=== PATIENT | male | born 1935 | race Caucasian/White ===

== ENCOUNTER → 2016-11-22 | Outpatient (CLI) | payer MEDICARE, MEDICAID ==
--- NOTE | 2016-11-22 20:15 | REP ---
PET/CT: History: Abnormal bone scan suspicious for metastatic disease. Comparison: Report of a bone scan from [facility] dated November 01, 2016 describe several foci suspicious for metastatic disease in the cervical, thoracic and lumbar spine, the right 9th rib and the left humeral shaft. TECHNIQUE: 78 minutes following the intravenous injection of a 8.2 mCi dose of F-18 FDG, three-dimensional PET scintigraphy is acquired from the skull base to the proximal thighs. Triplanar noncontrast CT scanning is acquired through the same anatomic range for attenuation correction, and image registration with scan parameters optimized to minimize radiation exposure to the patient. PET scintigraphy and CT datasets were fused and displayed on a workstation with multiplanar and projection display capability. PET/CT Findings: There does not appear to be a pattern of metastatic skeletal disease by PET scintigraphy. No abnormal hypermetabolic bone lesion is seen. There is mild diffuse periarticular FDG accumulation about the shoulders and the left hip and to a lesser extent right hip consistent with arthropathy. No abnormal spinal hypermetabolic uptake is seen. No abnormal hypermetabolic uptake is seen within the chest. Head and neck soft tissues are unremarkable. No abnormal pelvic or abdominal hypermetabolic uptake is seen. There is a bladder diverticulum on the right. Gallstones are noted. There are granulomatous calcifications in the spleen and in the lungs and hilar lymph nodes. No other abnormality. Impression: No PET scintigraphy evidence to suggest skeletal metastatic or other metastatic disease. Arthropathy pattern as noted above. Signed by Bhupinder Penny MD 11/23/2016 09:39 A
== END ==
LOC: M RAD 11:55
PROVIDERS: ATTEND Internal Medicine
DX: R93.7 Abnormal findings on diagnostic imaging of other parts of musculoskeletal system (principal); K80.70 Calculus of gallbladder and bile duct without cholecystitis without obstruction; N32.3 Diverticulum of bladder
CPT/HCPCS: 78815; A9552

== ENCOUNTER 2019-07-18 01:13 | Inpatient (IN) | payer MEDICARE, MEDICAID ==
[2019-07-18] MEDS ORDERED: ACETAMINOPHEN *IV* 1,000 MG in IV 1 EA IV ONE (04:00)
[2019-07-18] MEDS ORDERED: SODIUM CHLORIDE 0.9% 1000ML IV ONE (04:00)
[2019-07-18] MEDS ORDERED: ONDANSETRON 4MG/2ML VIAL (J2405) IV PRN (04:00)
[2019-07-18 04:45] VITALS: BP 168/89
[2019-07-18] MEDS ORDERED: ASPIRIN 81 MG CHEW TABLET PO ONE (05:30)
[2019-07-18 05:41] LABS: HEMATOCRIT 41.3 % (42.0-52.0); HEMOGLOBIN 13.3 g/dl (13.5-17.5); MEAN CORPUSCULAR HEMOGLOBIN 31.2 pg (27.0-33.0); MEAN CORPUSCULAR HGB CONC 32.2 g/dl (32.0-36.5); MEAN CORPUSCULAR VOLUME 96.9 fl (80.0-96.0); PLATELET COUNT, AUTOMATED 149 10^3/uL (150-450); RED BLOOD COUNT 4.26 10^6/uL (4.30-6.10); WHITE BLOOD COUNT 8.2 10^3/uL (4.0-10.0)
[2019-07-18] MEDS ORDERED: ROSU5TAB5 PO (05:52)
[2019-07-18] MEDS ORDERED: DULO30CA9 PO (05:52)
[2019-07-18] MEDS ORDERED: PARO40TA2 PO (05:52)
[2019-07-18] MEDS ORDERED: ATEN50TA2 PO (05:52)
[2019-07-18 05:55] VITALS: BP 157/85
[2019-07-18] MEDS ORDERED: ARTIDRO2 OU (05:56)
[2019-07-18] MEDS ORDERED: CHOL10007 PO (05:56)
[2019-07-18] MEDS ORDERED: XALA0.007 OU (05:56)
[2019-07-18] MEDS ORDERED: VITMTA PO (05:56)
[2019-07-18] MEDS ORDERED: ACET-907 PO (05:56)
[2019-07-18] MEDS ORDERED: ASPI81TA27 PO (05:56)
[2019-07-18] MEDS ORDERED: SYNT50TA PO (05:56)
--- NOTE | 2019-07-18 06:01 | HPEPDOC ---
[facility] Medical History & Physical Date of Admission Jul 18, 2019 Date of Service: Jul 18, 2019 Primary Care Physician: Victoriano Kirkpatrick Attending Physician: COREY DUNCAN MD History and Physical TIME OF SERVICE: 5:20 AM CHIEF COMPLAINT: Abdominal pain HISTORY OF PRESENT ILLNESS: This is an 83-year-old male who initially presented to [facility] with complaints of an episode of abdominal and chest pain. Prior to that he had been constipated for 3 days. He is today he ate several prunes; after eating dinner, he developed severe "gassy bloaty" in nature left lower quadrant abdominal pain that rated to the left scapula. The pain was made worse by lying down and improved after he vomited. By the time he arrived at the hospital, his pain had resolved. His EKG showed normal sinus rhythm with a heart rate of 68. Blood work: WBC 11.8, hemoglobin 18.2, platelet 183, sodium 138, potassium 4.5, chloride 102, bicarbonate 27, BUN 22, creatinine 1.6 (at baseline) glucose 162, troponin under 0.017, AST 231, ALT 103, alkaline phosphatase 115, lipase [address] of the abdomen and pelvis showed cholelithiasis, possible cholecystitis and diverticulosis. The ED provider requested transfer for higher level of care. REVIEW OF SYSTEMS: 12 point review of systems negative except as listed in HPI PAST MEDICAL/ SURGICAL HISTORY: GERD Chronic hypertension. Dyslipidemia Diverticulitis. Hypothyroidism Depression Anxiety Arthritis. Chronic coronary artery disease as post PCI over 20 years ago COPD / phillips's lung. Sarcoidosis per path report Status post hemorrhoidectomy. Status post open reduction and his femur fracture SOCIAL HISTORY: He used to to tobacco. He quit drinking several years ago Lives with his FAMILY HISTORY: Father of lung cancer. Sister had bone cancer ALLERGIES: Please see below. HOME MEDICATIONS: Please see below. PHYSICAL EXAMINATION: VITAL SIGNS: Please see below. GENERAL APPEARANCE: Well-nourished, well-developed, not in apparent distress HEENT: Normocephalic, atraumatic, mucous membranes moist and pink CARDIOVASCULAR: Slightly tachycardic, no murmurs, rubs or gallops. Radial pulses are intact LUNGS:Clear to auscultation bilaterally on room air ABDOMEN: No Bartolo or milian isaac sign, tonsils are present, abdomen is soft and nontender on palpation Machado's sign is negative MUSCULOSKELETAL: Range of motion is intact in all 4 extremities INTEGUMENT: appears to have vitiligo NEUROLOGICAL: CN II to 12 grossly intact, except auditory, speech is not dysarthric PSYCHIATRIC: alert and oriented, able to understand and follow commands LABORATORY DATA: See HPI. IMAGING: See HPI. ASSESSMENT: Mr. Gonzalez is an 83-year-old male with a past history of COPD, CAD, chronic hypertension, sarcoidosis, depression, and hypothyroidism, who will be admitted for evaluation of abdominal pain, possibly due to gallstone pancreatitis. PLAN: 1. Abdominal pain possibly due to costal pancreatitis. Plan: Admit to medical floor/nothing by mouth/IV fluids/follow-up to GI for possible ERCP 2. Chest pain. Possibility to abdominal pain. EKG and troponin were unremarkable Plan: Telemetry/trend troponins/aspirin. 3.Chronic hypertension. Plan: Continue home meds 4. Dyslipidemia / Chronic CAD Plan: Continue home meds 5. Hypothyroidism Plan: Continue home meds 6. Depression / Anxiety Plan: Continue home meds 7.Arthritis. Plan: Continue home meds 8.COPD Plan: albuterol PRN DVT prophylaxis with SCDs. Disposition home after more than 2 midnight's stay Vital Signs Vital Signs Date Time Temp Pulse Resp B/P (MAP) Pulse Ox O2 Delivery O2 Flow Rate FiO2 07/18/19 04:45 99.7 106 20 168/89 (115) 96 Room Air Laboratory Data Labs 24H Laboratory Tests 2 07/18/19 05:27: Nucleated Red Blood Cells % (auto) 0.0 CBC/BMP Laboratory Tests 07/18/19 05:27 Home Medications Scheduled Aspirin (Aspirin EC) 81 Mg Tablet.dr, 81 MG PO DAILY Atenolol (Atenolol) 50 Mg Tablet, 50 MG PO DAILY Cholecalciferol (Vitamin D3) (Vitamin D3) 1,000 Unit Tablet, 1,000 UNIT PO DAILY Duloxetine Hcl (Duloxetine HCl) 30 Mg Capsule.dr, 30 MG PO DAILY Latanoprost (Xalatan) 0.005% 2.5ML Drops, 1 DROP OU QHS Levothyroxine Sodium (Synthroid) 50 Mcg Tablet, 50 MCG PO DAILY Multivitamins (Thera M Plus Tablet) 1 Each Tablet, 1 TAB PO DAILY Paroxetine HCl (Paroxetine HCl) 40 Mg Tablet, 40 MG PO DAILY Rosuvastatin Calcium (Rosuvastatin Calcium) 5 Mg Tablet, 5 MG PO DAILY Scheduled PRN Acetaminophen (Tylenol) 325 Mg Tablet, 650 MG PO Q4H PRN for PAIN Polyvinyl Alcohol (Artificial Tears) 15 Ml Drops, 1 DROP OU QID PRN for DRY EYES Allergies Coded Allergies: Penicillins (Verified Allergy, Unknown, 07/18/19) propoxyphene (Verified Allergy, Unknown, 07/18/19) Sulfa (Sulfonamide Antibiotics) (Verified Adverse Reaction, Severe, PARALYSIS, 07/18/19) codeine (Verified Adverse Reaction, Mild, DIZZY, 07/18/19) acetaminophen (Verified Adverse Reaction, Unknown, DIZZY, 07/18/19) A-FIB/CHADSVASC A-FIB History Current/History of A-Fib/PAF?: No Current PO Anticoag Therapy: COREY Jerez MD Jul 18, 2019 06:01
[2019-07-18 06:06] LABS: ALBUMIN 3.4 GM/DL (3.2-5.2); ALT/SGPT 215 U/L (12-78); BILIRUBIN,TOTAL 0.9 MG/DL (0.2-1.0); BLOOD UREA NITROGEN 22 MG/DL (7-18); CALCIUM LEVEL 8.5 MG/DL (8.8-10.2); CARBON DIOXIDE LEVEL 27 MEQ/L (21-32); CHLORIDE LEVEL 107 MEQ/L (98-107); GLOMERULAR FILTRATION RATE 56.3 (>35); GLUCOSE, FASTING 116 MG/DL (70-100); POTASSIUM SERUM 4.1 MEQ/L (3.5-5.1); SODIUM LEVEL 140 MEQ/L (136-145); TOTAL PROTEIN 7.3 GM/DL (6.4-8.2); TROPONIN I < 0.02 NG/ML (< 0.10)
[2019-07-18] MEDS ORDERED: POLYVINYL ALCOHOL OPHTH SOLN 15 ML(LIQUITEARS) OU PRN (06:45)
[2019-07-18] MEDS ORDERED: ACETAMINOPHEN 325 MG TAB PO PRN (06:45)
[2019-07-18] MEDS ORDERED: PILL CUTTER 1 EACH XX PRN (07:00)
[2019-07-18] MEDS: LEVOTHYROXINE 50MCG TABLET (0.05MG) PO SCH (07:07)
[2019-07-18] MEDS: NS 1,000 ML IV SCH ×3 (07:08→23:35)
[2019-07-18] MEDS: ASPIRIN 81 MG ENTERIC TAB PO SCH (08:25)
[2019-07-18] MEDS: ROSUVASTATIN 10 MG TAB (CRESTOR) PO SCH (08:25)
[2019-07-18] MEDS: DULoxetine 30 MG CAP (CYMBALTA) PO SCH (08:25)
[2019-07-18] MEDS: PARoxetine 20 MG TAB PO SCH (08:25)
[2019-07-18] MEDS: ATENOLOL 50 MG TAB PO SCH (08:25)
[2019-07-18 09:17] LABS: LIPASE 1099 U/L (73-393)
[2019-07-18 10:00] VITALS: BP 131/69
--- NOTE | 2019-07-18 13:41 | REP ---
Urinary tract sonogram: History: Pancreatitis, acute kidney insufficiency. Comparison: No comparison study. Findings: Scanning at the level of the urinary bladder shows no abnormality. Emptying ureteral jets are confirmed on color Doppler interrogation of the bladder lumen bilaterally. Renal cortical echogenicity pattern is normal bilaterally and contours are smooth. There is no evidence of hydronephrosis, cyst, mass, or calculus in either kidney. Incidental note is made of rounded echogenic material in the gallbladder suggestive of cholelithiasis. The right kidney measures 12.1 x 6.4 x 4.7 cm. Left renal dimensions are 13.3 x 5.8 x 5.2 cm. There is a 1.8 cm cyst in the left mid kidney. Impression: Probable cholelithiasis. Small cyst left kidney, otherwise negative urinary tract sonography. Electronically Signed by Bhupinder Penny MD 07/18/2019 01:32 P
[2019-07-18 14:00] VITALS: BP 125/67
[2019-07-18] MEDS: PIPERACILLIN/TAZOBACTAM SOD 3.375 GM in D5W MINI-BAG PLUS 50 ML IV SCH ×2 (15:07→20:29)
[2019-07-18 18:00] VITALS: BP 118/69
[2019-07-18] MEDS: LATANOPROST 0.005% OPHTH SOLN 2.5 ML OU SCH (20:29)
[2019-07-18 22:00] VITALS: BP 121/70
[2019-07-18 22:31] LABS: ALT/SGPT 143 U/L (12-78); BILIRUBIN,TOTAL 1.5 MG/DL (0.2-1.0); BLOOD UREA NITROGEN 19 MG/DL (7-18); CALCIUM LEVEL 7.9 MG/DL (8.8-10.2); CARBON DIOXIDE LEVEL 28 MEQ/L (21-32); CHLORIDE LEVEL 108 MEQ/L (98-107); CREATININE FOR GFR 1.13 MG/DL (0.70-1.30); GLOMERULAR FILTRATION RATE > 60.0 (>35); GLUCOSE, FASTING 101 MG/DL (70-100); POTASSIUM SERUM 3.9 MEQ/L (3.5-5.1); SODIUM LEVEL 141 MEQ/L (136-145); TOTAL PROTEIN 6.2 GM/DL (6.4-8.2)
[2019-07-19 02:00] VITALS: BP 128/73
[2019-07-19] MEDS: PIPERACILLIN/TAZOBACTAM SOD 3.375 GM in D5W MINI-BAG PLUS 50 ML IV SCH ×4 (02:24→20:35)
[2019-07-19] MEDS: LEVOTHYROXINE 50MCG TABLET (0.05MG) PO SCH (05:37)
[2019-07-19 06:00] VITALS: BP 127/73
[2019-07-19 06:49] LABS: HEMATOCRIT 35.5 % (42.0-52.0); HEMOGLOBIN 11.5 g/dl (13.5-17.5); MEAN CORPUSCULAR HEMOGLOBIN 31.7 pg (27.0-33.0); MEAN CORPUSCULAR HGB CONC 32.4 g/dl (32.0-36.5); MEAN CORPUSCULAR VOLUME 97.8 fl (80.0-96.0); PLATELET COUNT, AUTOMATED 133 10^3/uL (150-450); RED BLOOD COUNT 3.63 10^6/uL (4.30-6.10)
[2019-07-19] MEDS: NS 1,000 ML IV SCH ×3 (06:57→15:06)
[2019-07-19 07:06] LABS: BLOOD UREA NITROGEN 16 MG/DL (7-18); CALCIUM LEVEL 8.2 MG/DL (8.8-10.2); CARBON DIOXIDE LEVEL 27 MEQ/L (21-32); CHLORIDE LEVEL 109 MEQ/L (98-107); CREATININE FOR GFR 1.14 MG/DL (0.70-1.30); GLOMERULAR FILTRATION RATE > 60.0 (>35); GLUCOSE, FASTING 94 MG/DL (70-100); MAGNESIUM LEVEL 2.2 MG/DL (1.8-2.4); POTASSIUM SERUM 4.1 MEQ/L (3.5-5.1); SODIUM LEVEL 140 MEQ/L (136-145)
[2019-07-19] MEDS: ASPIRIN 81 MG ENTERIC TAB PO SCH (08:06)
[2019-07-19] MEDS: DULoxetine 30 MG CAP (CYMBALTA) PO SCH (08:07)
[2019-07-19] MEDS: ROSUVASTATIN 10 MG TAB (CRESTOR) PO SCH (08:07)
[2019-07-19] MEDS: PARoxetine 20 MG TAB PO SCH (08:07)
[2019-07-19] MEDS: ATENOLOL 50 MG TAB PO SCH (08:07)
[2019-07-19 09:43] LABS: ALBUMIN 2.8 GM/DL (3.2-5.2); ALT/SGPT 116 U/L (12-78); BILIRUBIN,TOTAL 1.2 MG/DL (0.2-1.0); TOTAL PROTEIN 6.5 GM/DL (6.4-8.2)
[2019-07-19 10:00] VITALS: BP 130/75
--- NOTE | 2019-07-19 11:39 | REP ---
Partial skull series: History: Orbital series for MRI clearance. Comparison is made with images obtained as part of a PET-CT study November 22, 2016. No other orbital imaging is available. Findings: There is a small metallic foreign body projecting in the upper central orbit on the left. This measures approximately 2 mm in length. It has a linear configuration. A metallic density is seen at the anterior chamber of the ocular globe on the left on CT imaging from PET study November 22, 2016. No bony abnormality is seen. The patient appears to be edentulous. No other finding. Impression: There is an intraorbital metallic foreign body in the left central orbit which appears to correspond with an anterior chamber intraocular density on November 22, 2016 PET-CT images. Without further documentation that this is a therapeutic, MR compatible device, I would not clear this patient for MRI scanning. Electronically Signed by Bhupinder Penny MD 07/19/2019 05:01 P
[2019-07-19 14:00] VITALS: BP 135/70
[2019-07-19] MEDS: ACETAMINOPHEN TAB 650MG DOSE (2X325MG) PO PRN (14:11)
[2019-07-19] MEDS ORDERED: NS 1,000 ML IV SCH (15:00)
--- NOTE | 2019-07-19 15:37 | IPNPDOC ---
Subjective Date Seen The patient was seen on 07/19/19. Subjective Chief Complaint/HPI abdominal pain Events since last encounter Pt stated that his abdominal pain has significantly improved. Objective Physical Examination General Exam: Positive: Alert, Cooperative, No Acute Distress, Other (hard of hearing ) ENT Exam: Positive: Mucous membr. moist/pink Neck Exam: Positive: Supple Chest Exam: Positive: Clear to auscultation Heart Exam: Positive: Rate Normal Abdomen Exam: Positive: Normal bowel sounds, Soft Skin Exam: Positive: Nl turgor and temperature Neuro Exam: Positive: Strength at 5/5 X4 ext Psych Exam: Positive: Mental status NL Assessment /Plan Assessment 83 y/o M who initially presented to [facility] with c/o abdominal pain Blood work: WBC 11.8, hemoglobin 18.2, platelet 183, sodium 138, potassium 4.5, chloride 102, bicarbonate 27, BUN 22, creatinine 1.6 (at baseline) glucose 162, troponin under 0.017, AST 231, ALT 103, alkaline phosphatase 115, lipase [address] of the abdomen and pelvis showed cholelithiasis, possible cholecystitis and diverticulosis. Pt was transferred to [facility] for higher level of care. labs reviewed PLAN: 1. Abdominal pain possibly due to gallstone pancreatitis. Pt spiked fever so he was started on iv zosyn MRCP could not be performed due to intraorbital stent for ? glaucoma GI recommendations appreciated- possible ERCP tomorrow 2. hypertension. home meds 3. Dyslipidemia / Chronic CAD Continue home meds 5. Hypothyroidism Continue home meds 6. Depression / Anxiety Continue home meds 7.Arthritis. Continue home meds 8.COPD albuterol PRN 9. Sarcoidosis stable DVT prophylaxis with SCDs. Plan/VTE VTE Prophylaxis Ordered?: Yes VS, I&O, 24H, Fishbone Vital Signs/I&O Vital Signs Date Time Temp Pulse Resp B/P (MAP) Pulse Ox O2 Delivery O2 Flow Rate FiO2 07/19/19 14:00 97.3 58 20 135/70 (91) 98 Room Air I&O- Last 24 Hours up to 6 AM 07/19/19 06:00 Intake Total 3450 ml Output Total 1775 ml Balance 1675 ml Laboratory Data 24H LABS Laboratory Tests 2 07/18/19 21:46: Anion Gap 5L, Glomerular Filtration Rate > 60.0, Calcium Level 7.9L, Total Bilirubin 1.5#H, Aspartate Amino Transf (AST/SGOT) 109H, Alanine Aminotransferase (ALT/SGPT) 143H, Alkaline Phosphatase 118H, Total Protein 6.2L, Albumin 3.0L, Albumin/Globulin Ratio 0.94L 07/19/19 06:18: Anion Gap 4L, Glomerular Filtration Rate > 60.0, Calcium Level 8.2L, Total Bilirubin 1.2H, Aspartate Amino Transf (AST/SGOT) 73H, Alanine Aminotransferase (ALT/SGPT) 116H, Alkaline Phosphatase 114, Total Protein 6.5, Albumin 2.8L, Albumin/Globulin Ratio 0.76L, Nucleated Red Blood Cells % (auto) 0.0, Magnesium Level 2.2 CBC/BMP Laboratory Tests 07/18/19 21:46 07/19/19 06:18 Microbiology Microbiology 07/18/19 Blood Culture - Preliminary, Resulted No growth after 24 hours . All specim... MIGUEL MASSEY MD Jul 19, 2019 15:37
[2019-07-19] MEDS: LATANOPROST 0.005% OPHTH SOLN 2.5 ML OU SCH (20:35)
[2019-07-19 22:00] VITALS: BP 120/56
[2019-07-20] VITALS (9 sets, daily range): BP systolic 138–168; BP diastolic 70–81
[2019-07-20] MEDS: NS 1,000 ML IV SCH (00:26)
[2019-07-20] MEDS: PIPERACILLIN/TAZOBACTAM SOD 3.375 GM in D5W MINI-BAG PLUS 50 ML IV SCH ×4 (02:21→20:28)
[2019-07-20] MEDS: LEVOTHYROXINE 50MCG TABLET (0.05MG) PO SCH (05:37)
[2019-07-20 06:38] LABS: HEMATOCRIT 36.6 % (42.0-52.0); HEMOGLOBIN 11.7 g/dl (13.5-17.5); MEAN CORPUSCULAR HEMOGLOBIN 31.2 pg (27.0-33.0); MEAN CORPUSCULAR VOLUME 97.6 fl (80.0-96.0); PLATELET COUNT, AUTOMATED 140 10^3/uL (150-450); RED BLOOD COUNT 3.75 10^6/uL (4.30-6.10); WHITE BLOOD COUNT 4.9 10^3/uL (4.0-10.0)
[2019-07-20 07:08] LABS: ALBUMIN 2.8 GM/DL (3.2-5.2); ALT/SGPT 89 U/L (12-78); BILIRUBIN,TOTAL 0.7 MG/DL (0.2-1.0); BLOOD UREA NITROGEN 14 MG/DL (7-18); CALCIUM LEVEL 7.9 MG/DL (8.8-10.2); CARBON DIOXIDE LEVEL 27 MEQ/L (21-32); CHLORIDE LEVEL 108 MEQ/L (98-107); GLOMERULAR FILTRATION RATE > 60.0 (>35); GLUCOSE, FASTING 92 MG/DL (70-100); POTASSIUM SERUM 3.9 MEQ/L (3.5-5.1); SODIUM LEVEL 141 MEQ/L (136-145); TOTAL PROTEIN 6.8 GM/DL (6.4-8.2)
[2019-07-20] MEDS: ROSUVASTATIN 10 MG TAB (CRESTOR) PO SCH (08:20)
[2019-07-20] MEDS: DULoxetine 30 MG CAP (CYMBALTA) PO SCH (08:20)
[2019-07-20] MEDS: ASPIRIN 81 MG ENTERIC TAB PO SCH (08:20)
[2019-07-20] MEDS: PARoxetine 20 MG TAB PO SCH (08:20)
[2019-07-20] MEDS: ATENOLOL 50 MG TAB PO SCH (08:21)
--- NOTE | 2019-07-20 11:55 | CR ---
DATE OF CONSULTATION: 07/19/2019 This is a 83-year white male who was transferred down from [facility] for evaluation of abdominal pain and atypical chest pain. The patient had some issues with constipation 3 days prior to admission complaining of passing blood in nature. He had some left lower quadrant abdominal pain that radiates into his left scapula. He has some episodes of vomiting. The patient was transferred from [facility] for an evaluation for possible gallbladder disease. CT at [facility] suggested gallstones. He is being seen by GI for evaluation of abnormal liver function tests and we are unable to rule out common bile duct stones due to our inability to obtaining the MRCP on the weekend. The patient denies any complaints of abdominal pain at this time. On transfer, the patient had lipase of 4958, alkaline phosphatase was 115. His AST was 231, ALT was 103. BUN 22, creatinine was 1.6. It looked like patient was that the patient was having gallstone pancreatitis. 12-point review of systems noncontributory. PAST MEDICAL HISTORY: Positive for: Reflux. Hypertension. Dyslipidemia. Hypothyroidism. Depression. Anxiety. Coronary artery disease over 20 years ago. Chronic obstructive pulmonary disease (COPD). Sarcoidosis, status post hemorrhoidectomy. Status post open reduction for femur fracture. SOCIAL HISTORY: The patient used tobacco. He quit drinking several years ago. History is positive for father who of lung cancer. Sister had bone cancer. ALLERGIES: As above. General: Well-developed, well-nourished white male in no acute distress. Appears stated age. Chest was clear to auscultation. Cardiovascular exam: Regular rhythm. No murmurs or gallops. Normal physiological split. S1, S2. Abdomen: Soft, nontender. No masses, guarding, rebound, hepatosplenomegaly. Bowel sounds positive. Extremities: No cyanosis, clubbing, edema. Lui's negative. Laboratory studies on admission showed a white count 8200, hemoglobin and hematocrit of 13.3 and 41.3, platelets 449,000. The patient's chemistry showed on the 16th and total bilirubin 1.2, AST of 73, ALT of 116, alkaline phosphatase was 114. ANALYSIS: Abdominal pain, liver function tests possibility the patient may have choledocholithiasis. PLAN: Perform ERCP with papillotomy balloon sweep to clear the common bile duct for potential consideration for laparoscopic cholecystectomy.
--- NOTE | 2019-07-20 13:53 | IPNPDOC ---
Subjective Date Seen The patient was seen on 07/20/19. Subjective Chief Complaint/HPI abdominal pain Events since last encounter Pt denied abdominal pain, General: Reports: Normal Appetite Psych: Reports: Mood Normal Objective Physical Examination General Exam: Positive: Alert, Cooperative, No Acute Distress, Other (hard of hearing ) Eye Exam: Positive: PERRLA ENT Exam: Positive: Mucous membr. moist/pink Neck Exam: Positive: Supple Chest Exam: Positive: Clear to auscultation Heart Exam: Positive: Rate Normal Abdomen Exam: Positive: Normal bowel sounds, Soft Skin Exam: Positive: Nl turgor and temperature Neuro Exam: Positive: Strength at 5/5 X4 ext Psych Exam: Positive: Mental status NL Assessment /Plan Assessment 83 y/o M who initially presented to [facility] with c/o abdominal pain Blood work: WBC 11.8, hemoglobin 18.2, platelet 183, sodium 138, potassium 4.5, chloride 102, bicarbonate 27, BUN 22, creatinine 1.6 (at baseline) glucose 162, AST 231, ALT 103, alkaline phosphatase 115, lipase 4958 CT of the abdomen and pelvis showed cholelithiasis, possible cholecystitis and diverticulosis. Pt was transferred to [facility] for higher level of care. labs reviewed PLAN: 1. Abdominal pain possibly due to gallstone pancreatitis and suspected choledocholithiasis Pt spiked fever so he was started on iv zosyn GI recommendations appreciated- scheduled for ERCP NPO, ivf, iv pain meds prn will f/u with GI 2. hypertension. home meds 3. Dyslipidemia / Chronic CAD Continue home meds 5. Hypothyroidism Continue home meds 6. Depression / Anxiety Continue home meds 7.Arthritis. Continue home meds 8.COPD albuterol PRN 9. Sarcoidosis stable Plan/VTE VTE Prophylaxis Ordered?: Yes VS, I&O, 24H, Fishbone Vital Signs/I&O Vital Signs Date Time Temp Pulse Resp B/P (MAP) Pulse Ox O2 Delivery O2 Flow Rate FiO2 07/20/19 10:00 97.0 57 14 149/81 (103) 97 Room Air I&O- Last 24 Hours up to 6 AM 07/20/19 06:00 Intake Total 1020 ml Output Total 2145 ml Balance -1125 ml Laboratory Data 24H LABS Laboratory Tests 2 07/20/19 05:35: Nucleated Red Blood Cells % (auto) 0.0, Anion Gap 6L, Glomerular Filtration Rate > 60.0, Calcium Level 7.9L, Total Bilirubin 0.7, Aspartate Amino Transf (AST/SGOT) 42H, Alanine Aminotransferase (ALT/SGPT) 89H, Alkaline Phosphatase 120H, Total Protein 6.8, Albumin 2.8L, Albumin/Globulin Ratio 0.70L CBC/BMP Laboratory Tests 07/20/19 05:35 Microbiology Microbiology 07/18/19 Blood Culture - Preliminary, Resulted No growth after 24 hours . All specim... MIGUEL MASSEY MD Jul 20, 2019 13:52
[2019-07-20] MEDS ORDERED: LIDOCAINE 2% INJ 100 MG/5 ML SDV (FOR ANES.) As Ordered ONE (14:05)
[2019-07-20] MEDS ORDERED: fentaNYL 100 MCG/2 ML INJECTION (J3010) As Ordered ONE (14:05)
[2019-07-20] MEDS ORDERED: METOCLOPRAMIDE INJ 10MG/2ML VIAL (J2765) As Ordered ONE (14:05)
[2019-07-20] MEDS ORDERED: ONDANSETRON 4MG/2ML VIAL (J2405) As Ordered ONE (14:05)
[2019-07-20] MEDS ORDERED: PROPOFOL 200 MG/20 ML VIAL As Ordered ONE (14:05)
[2019-07-20] MEDS ORDERED: ROCURONIUM BROMIDE 50 MG/5 ML VIAL As Ordered ONE (14:05)
[2019-07-20] MEDS ORDERED: SUGAMMADEX SODIUM 500 MG/5 ML VIAL (BRIDION) As Ordered ONE (14:05)
[2019-07-20] MEDS ORDERED: dexameTHASONE 4 MG/ML 1ML VIAL (J1100) As Ordered ONE (14:05)
[2019-07-20] MEDS ORDERED: ISOVUE-300 61% 50ML VIAL (Q9967) As Ordered ONE (14:08)
[2019-07-20] MEDS ORDERED: DESFLURANE 240 ML INHALANT As Ordered ONE (14:14)
--- NOTE | 2019-07-20 14:40 | ROOR ---
Patient Name: Tuan Gonzalez Procedure Date: 07/20/2019 2:05 PM Date of : 1935 Age: 83 Room: Main OR Gender: Male Note Status: Finalized Procedure: ERCP + Papillotomy + Balloon Sweep Indications: Abdominal pain of suspected biliary origin, Acute pancreatitis, Gallstone associated acute pancreatitis Providers: Jeffry Coulter MD Referring MD: 2. Inpatient 2. Inpatient Requesting Provider: Medicines: General Anesthesia Complications: No immediate complications. Procedure: Pre-Anesthesia Assessment: - The heart rate, respiratory rate, oxygen saturations, blood pressure, adequacy of pulmonary ventilation, and response to care were monitored throughout the procedure. The Duodenoscope was introduced through the mouth, and advanced to the duodenum and used to inject contrast into the bile duct. The ERCP was accomplished without difficulty. The patient tolerated the procedure well. Findings: The upper GI tract was traversed under direct vision without detailed examination. The major papilla was normal. The bile duct was deeply cannulated with the short-nosed traction sphincterotome. Contrast was injected. I personally interpreted the bile duct images. Ductal flow of contrast was adequate. Image quality was adequate. Contrast extended to the entire biliary tree. The entire biliary tree was mildly dilated. A short 0.035 inch Soft Jagwire was passed into the biliary tree. Biliary sphincterotomy was made with a monofilament traction (standard) sphincterotome using ERBE electrocautery. There was no post-sphincterotomy bleeding. The biliary tree was swept with a 12 mm balloon starting at the bifurcation. Sludge was swept from the duct. Impression: - The entire biliary tree was mildly dilated. - A biliary sphincterotomy was performed. - The biliary tree was swept and sludge was found. - The examination was otherwise normal. Recommendation: - Avoid aspirin and nonsteroidal anti-inflammatory medicines. - [facility]. - Continue present medications. - Return to referring physician. - Watch for pancreatitis, bleeding, perforation, and cholangitis. - The findings and recommendations were discussed with the patient's family. Jeffry Coulter MD Jeffry Coulter MD 07/20/2019 2:40:01 PM Electronically signed by Jeffry Coluter MD Number of Addenda: 0 Note Initiated On: 07/20/2019 2:05 PM Estimated Blood Loss: Estimated blood loss: none.
--- NOTE | 2019-07-20 14:48 | REP ---
ERCP: 10 views. History: Procedural imaging. ERCP. 2 minutes 8 seconds of fluoroscopy time is reported. Findings: A sequence of 10 last image hold fluoroscopically obtained spot radiographs document endoscopic cannulation and contrast injection of the common bile duct. Electronically Signed by Bhupinder Penny MD 07/20/2019 02:39 P
[2019-07-20] MEDS: ACETAMINOPHEN TAB 650MG DOSE (2X325MG) PO PRN (16:16)
[2019-07-20] MEDS: LATANOPROST 0.005% OPHTH SOLN 2.5 ML OU SCH (20:35)
[2019-07-21] MEDS: PIPERACILLIN/TAZOBACTAM SOD 3.375 GM in D5W MINI-BAG PLUS 50 ML IV SCH ×2 (02:23→09:38)
[2019-07-21 06:00] VITALS: BP 158/72
[2019-07-21] MEDS: LEVOTHYROXINE 50MCG TABLET (0.05MG) PO SCH (06:03)
[2019-07-21] MEDS: PARoxetine 20 MG TAB PO SCH (09:39)
[2019-07-21] MEDS: ROSUVASTATIN 10 MG TAB (CRESTOR) PO SCH (09:39)
[2019-07-21] MEDS: ASPIRIN 81 MG ENTERIC TAB PO SCH (09:39)
[2019-07-21] MEDS: DULoxetine 30 MG CAP (CYMBALTA) PO SCH (09:39)
[2019-07-21 09:42] VITALS: BP 144/72
[2019-07-21] MEDS: ATENOLOL 50 MG TAB PO SCH (09:42)
[2019-07-21 10:00] VITALS: BP 140/78
[2019-07-21] MEDS: ACETAMINOPHEN TAB 650MG DOSE (2X325MG) PO PRN (12:08)
--- NOTE | 2019-07-21 15:04 | DS.PDOC ---
Discharge Summary General Date of Admission Jul 18, 2019 at 04:35 Date of Discharge 07/21/19 Discharge Summary PROCEDURES PERFORMED DURING STAY: ERCP ADMITTING DIAGNOSES: suspected gall stone pancreatitis DISCHARGE DIAGNOSES: resolved episode of gall stone pancreatitis, s/p ERCP COMPLICATIONS/CHIEF COMPLAINT: abdominal pain HISTORY OF PRESENT ILLNESS: "83-year-old male who initially presented to [facility] with complaints of an episode of abdominal and chest pain. Prior to that he had been constipated for 3 days. He is today he ate several prunes; after eating dinner, he developed severe "gassy bloaty" in nature left lower quadrant abdominal pain that rated to the left scapula. The pain was made worse by lying down and improved after he vomited. By the time he [facility] at the [facility], his pain had resolved. His EKG showed normal sinus rhythm with a heart rate of 68. Blood work: WBC 11.8, hemoglobin 18.2, platelet 183, sodium 138, potassium 4.5, chloride 102, bicarbonate 27, BUN 22, creatinine 1.6 (at baseline) glucose 162, troponin under 0.017, AST 231, ALT 103, alkaline phosphatase 115, lipase [address] of the abdomen and pelvis showed cholelithiasis, possible cholecystitis and diverticulosis. The ED provider requested transfer for higher level of care." HOSPITAL COURSE: 83 y/o M was admitted for suspected episode of gall stone pancreatitis and ? choledocholithiasis. Pt underwent ERCP. Over the course of treatment pt's clinical condition improved and abdominal pain resolved. Pt started to tolerate PO diet. As per GI service recommendations pt would be discharged home with o/p general surgery for cholecystectomy eval. Pt was seen and examined at bedside on day of discharge. Pt stated that he is feeling fine and did not have any complaint. Pt was clinically and vitally stable at the time of discharge. PHYSICAL EXAMINATION ON DISCHARGE: VITAL SIGNS: Please see below. GENERAL: Comfortable HEENT: Oral mucosa moist NECK: supple CARDIOVASCULAR EXAMINATION: regular rate and rhythm RESPIRATORY EXAMINATION: clear to auscultation ABDOMINAL EXAMINATION: Soft, non tender, normal bowel sounds heard EXTREMITIES: No edema NEUROLOGICAL EXAMINATION: b/l upper and lower extremities strength 5/5 I spent 34 minutes of time in coordinating discharge of this patient Vital Signs/I&Os Vital Signs Date Time Temp Pulse Resp B/P (MAP) Pulse Ox O2 Delivery O2 Flow Rate FiO2 07/21/19 10:00 97.3 70 17 140/78 (98) 91 Room Air I&O- Last 24 Hours up to 6 AM 07/21/19 06:00 Intake Total 1070 ml Output Total 1675 ml Balance -605 ml Microbiology Microbiology 07/18/19 Blood Culture - Preliminary, Resulted No Growth after 48 hours. All Specime... Discharge Medications Scheduled Atenolol (Atenolol) 50 Mg Tablet, 50 MG PO DAILY, (Reported) Cholecalciferol (Vitamin D3) (Vitamin D3) 1,000 Unit Tablet, 1,000 UNIT PO DAILY , (Reported) Duloxetine Hcl (Duloxetine HCl) 30 Mg Capsule.dr, 30 MG PO DAILY, (Reported) Latanoprost (Xalatan) 0.005% 2.5ML Drops, 1 DROP OU QHS, (Reported) Levothyroxine Sodium (Synthroid) 50 Mcg Tablet, 50 MCG PO DAILY, (Reported) Multivitamins (Thera M Plus Tablet) 1 Each Tablet, 1 TAB PO DAILY, (Reported) Paroxetine HCl (Paroxetine HCl) 40 Mg Tablet, 40 MG PO DAILY, (Reported) Rosuvastatin Calcium (Rosuvastatin Calcium) 5 Mg Tablet, 5 MG PO DAILY, (Reported) Scheduled PRN Acetaminophen (Tylenol) 325 Mg Tablet, 650 MG PO Q4H PRN for PAIN, (Reported) Polyvinyl Alcohol (Artificial Tears) 15 Ml Drops, 1 DROP OU QID PRN for DRY EYES, (Reported) Allergies Coded Allergies: Penicillins (Verified Allergy, Unknown, 07/18/19) propoxyphene (Verified Allergy, Unknown, 07/18/19) Sulfa (Sulfonamide Antibiotics) (Verified Adverse Reaction, Severe, PARALYSIS, 07/18/19) codeine (Verified Adverse Reaction, Mild, DIZZY, 07/18/19) acetaminophen (Verified Adverse Reaction, Unknown, DIZZY, 07/18/19) MIGUEL MASSEY MD Jul 21, 2019 13:29
== END 2019-07-21 14:54 | disposition home or self-care (01) | DRG 440 ==
LOC: M MS4PR 04:35 → M ED INP 04:53 → M MS4PR 04:54 → M MSPAV 06:09
PROVIDERS: ADMIT Internal Medicine; ATTEND Internal Medicine
PROC: 0FC98ZZ Extirpation of Matter from Common Bile Duct, Via Natural or Artificial Opening Endoscopic (ICD-10-PCS; principal; 2019-07-20 10:00)
DX: K85.10 Biliary acute pancreatitis without necrosis or infection (principal); K80.20 Calculus of gallbladder without cholecystitis without obstruction; I10 Essential (primary) hypertension; J44.9 Chronic obstructive pulmonary disease, unspecified; Z79.899 Other long term (current) drug therapy; Z88.0 Allergy status to penicillin; Z88.8 Allergy status to other drugs, medicaments and biological substances; Z88.2 Allergy status to sulfonamides; Z88.5 Allergy status to narcotic agent; Z88.6 Allergy status to analgesic agent; E78.5 Hyperlipidemia, unspecified; K57.30 Diverticulosis of large intestine without perforation or abscess without bleeding; E03.9 Hypothyroidism, unspecified; F32.9 Major depressive disorder, single episode, unspecified; M19.90 Unspecified osteoarthritis, unspecified site; I25.10 Atherosclerotic heart disease of native coronary artery without angina pectoris; D86.9 Sarcoidosis, unspecified; F41.9 Anxiety disorder, unspecified; K21.9 Gastro-esophageal reflux disease without esophagitis

== ENCOUNTER 2022-04-26 07:29 | Day surgery (SDC) | payer MEDICARE, MEDICAID ==
[~2022-04-26] VITALS: Ht 176.5 cm; Wt 82.1 kg
[~2022-04-26 07:29] MED LIST: ACET-907 PO; APAP500T10 PO; ASPI81TA27 PO; ATEN50TA2 PO; BSS IRRIG/VANCO(10MG)/TOBRA(5MG)/EPINEPH(1:1000-0.5CC)500ML BAG-ORONLY IR ONE; CHOL10007 PO; CYCLOPENTOLATE 1% OPHTH SOLN 2 ML BTL OS SCH; DULO30CA9 PO; LIDOCAINE 1% SDV 5ML VIAL As Ordered ONE; LIDOCAINE 3.5 % 1ML OPHTH TOPICAL GEL OU ONE; OFLOXACIN 0.3 % (OCUFLOX) OPTH SOL 5ML OS ONE; PARO40TA2 PO; PHENYLEPHRINE 2.5% OPHTH SOL 2ML OS SCH; PHENYLEPHRINE HCL 10 % OPHTH. SOL 5ML OS PRN; POLYOPD OU; ROSU5TAB5 PO; SYNT50TA PO; TROPICAMIDE 1% OPHTH SOLN 2ML OS SCH; VITA100093 PO; VITMTA PO; XALA0.007 OU
[2022-04-26] MEDS ORDERED: DUOVISC (0.50ML VISCOAT/0.85ML PROVISC) OPHTH KIT As Ordered ONE (07:32)
[2022-04-26] MEDS ORDERED: MIDAZOLAM INJ 2MG/2ML VIAL (J2250 PER 1MG) As Ordered ONE (08:10)
[2022-04-26] MEDS ORDERED: fentaNYL 100 MCG/2 ML INJECTION As Ordered ONE (08:11)
[2022-04-26] MEDS ORDERED: ACETYLCHOLINE OPHTH SOLN 1% 2ML (MIOCHOL-E) As Ordered ONE (09:09)
[2022-04-26 09:23] VITALS: BP 162/77
== END 2022-04-26 09:45 | disposition home or self-care (01) ==
LOC: M SDC 07:29
PROVIDERS: ATTEND Ophthalmology
DX: H25.12 Age-related nuclear cataract, left eye (principal); H40.1132 Primary open-angle glaucoma, bilateral, moderate stage; H16.223 Keratoconjunctivitis sicca, not specified as Sjogren's, bilateral; I10 Essential (primary) hypertension; E03.9 Hypothyroidism, unspecified; I25.10 Atherosclerotic heart disease of native coronary artery without angina pectoris; Z98.61 Coronary angioplasty status; Z95.1 Presence of aortocoronary bypass graft; K57.92 Diverticulitis of intestine, part unspecified, without perforation or abscess without bleeding; Z88.2 Allergy status to sulfonamides; Z88.5 Allergy status to narcotic agent; Z79.82 Long term (current) use of aspirin; Z79.899 Other long term (current) drug therapy
CPT/HCPCS: 66711; 66989; 87428; C1783; J2250; J3010; V2632